=== PATIENT | female | born 1940 | race Caucasian/White ===

== ENCOUNTER 2017-02-22 11:52 | Outpatient (RCR) | payer OTHER ==
[~2017-02-22 11:52] MED LIST: ASPIRIN EC81 MG PO; BENICAR HCT 201 EACH PO; CENTRUM SILVER1 EAC3 PO; CHROMIUM PICO400 MCG PO; GABAPENTIN300 MG PO; GLUCOSAMINE PO; METFORMIN HCL500 MG PO; MUSHROOM COMPLEX PO; PROBIOTIC COMP1 EACH PO; VITAMIN B-12 PO; VITAMIN C PO; VITAMIN D32000 UNIT PO
== END 2017-03-23 ==
LOC: EDSEX → WCC 11:52
PROVIDERS: ATTEND Podiatrist Foot & Ankle Surgery
DX: E11.65 Type 2 diabetes mellitus with hyperglycemia (principal); E11.40 Type 2 diabetes mellitus with diabetic neuropathy, unspecified; E11.621 Type 2 diabetes mellitus with foot ulcer; I87.331 Chronic venous hypertension (idiopathic) with ulcer and inflammation of right lower extremity; L97.812 Non-pressure chronic ulcer of other part of right lower leg with fat layer exposed; I89.0 Lymphedema, not elsewhere classified; R61 Generalized hyperhidrosis; S81.802A Unspecified open wound, left lower leg, initial encounter; S91.104A Unspecified open wound of right lesser toe(s) without damage to nail, initial encounter; D50.8 Other iron deficiency anemias; L97.521 Non-pressure chronic ulcer of other part of left foot limited to breakdown of skin; E66.01 Morbid (severe) obesity due to excess calories; E78.5 Hyperlipidemia, unspecified; G47.33 Obstructive sleep apnea (adult) (pediatric); I10 Essential (primary) hypertension; I42.0 Dilated cardiomyopathy; I87.2 Venous insufficiency (chronic) (peripheral); I97.2 Postmastectomy lymphedema syndrome; M14.672 Charcot's joint, left ankle and foot; M19.93 Secondary osteoarthritis, unspecified site; M79.7 Fibromyalgia; W17.89XA Other fall from one level to another, initial encounter; Z85.42 Personal history of malignant neoplasm of other parts of uterus

== ENCOUNTER 2017-04-05 12:00 | Outpatient (RCR) | payer OTHER | END 2017-04-23 | LOC: WCC 12:00 | PROVIDERS: ATTEND Podiatrist Foot & Ankle Surgery | DX: E11.40 Type 2 diabetes mellitus with diabetic neuropathy, unspecified (principal); E11.65 Type 2 diabetes mellitus with hyperglycemia; I87.331 Chronic venous hypertension (idiopathic) with ulcer and inflammation of right lower extremity; L97.812 Non-pressure chronic ulcer of other part of right lower leg with fat layer exposed; S81.802A Unspecified open wound, left lower leg, initial encounter; S91.104A Unspecified open wound of right lesser toe(s) without damage to nail, initial encounter; I97.2 Postmastectomy lymphedema syndrome; I89.0 Lymphedema, not elsewhere classified; R60.1 Generalized edema; M14.672 Charcot's joint, left ankle and foot; I87.2 Venous insufficiency (chronic) (peripheral); D50.8 Other iron deficiency anemias; I10 Essential (primary) hypertension; E66.01 Morbid (severe) obesity due to excess calories; E78.5 Hyperlipidemia, unspecified; G47.33 Obstructive sleep apnea (adult) (pediatric); I48.2 Chronic atrial fibrillation; M19.93 Secondary osteoarthritis, unspecified site; M79.7 Fibromyalgia; W17.89XA Other fall from one level to another, initial encounter; Z85.42 Personal history of malignant neoplasm of other parts of uterus | CPT/HCPCS: 36415; 82948; G0463 ==

== ENCOUNTER 2017-05-17 14:00 | Outpatient (RCR) | payer OTHER | END 2017-05-24 | LOC: WCC 14:00 | PROVIDERS: ATTEND Podiatrist Foot & Ankle Surgery | DX: E11.65 Type 2 diabetes mellitus with hyperglycemia (principal); E11.40 Type 2 diabetes mellitus with diabetic neuropathy, unspecified; E11.621 Type 2 diabetes mellitus with foot ulcer; L97.521 Non-pressure chronic ulcer of other part of left foot limited to breakdown of skin; L97.812 Non-pressure chronic ulcer of other part of right lower leg with fat layer exposed; S81.802A Unspecified open wound, left lower leg, initial encounter; S91.104A Unspecified open wound of right lesser toe(s) without damage to nail, initial encounter; I87.331 Chronic venous hypertension (idiopathic) with ulcer and inflammation of right lower extremity; I87.2 Venous insufficiency (chronic) (peripheral); M14.672 Charcot's joint, left ankle and foot; I89.0 Lymphedema, not elsewhere classified; I97.2 Postmastectomy lymphedema syndrome; D50.8 Other iron deficiency anemias; E66.01 Morbid (severe) obesity due to excess calories; E78.5 Hyperlipidemia, unspecified; G47.33 Obstructive sleep apnea (adult) (pediatric); I10 Essential (primary) hypertension; I48.2 Chronic atrial fibrillation; M19.93 Secondary osteoarthritis, unspecified site; M79.7 Fibromyalgia; R61 Generalized hyperhidrosis; W17.89XA Other fall from one level to another, initial encounter; Z85.42 Personal history of malignant neoplasm of other parts of uterus | CPT/HCPCS: 36415; 82948; G0463 ==

== ENCOUNTER → 2017-06-21 | Outpatient (RCR) | payer OTHER | LOC: WCC 12:15 | PROVIDERS: ATTEND Podiatrist Foot & Ankle Surgery | DX: E11.621 Type 2 diabetes mellitus with foot ulcer (principal); E11.65 Type 2 diabetes mellitus with hyperglycemia; E11.40 Type 2 diabetes mellitus with diabetic neuropathy, unspecified; L97.421 Non-pressure chronic ulcer of left heel and midfoot limited to breakdown of skin; R21 Rash and other nonspecific skin eruption; I10 Essential (primary) hypertension; I87.2 Venous insufficiency (chronic) (peripheral); M14.672 Charcot's joint, left ankle and foot; I48.2 Chronic atrial fibrillation; M79.7 Fibromyalgia; D50.8 Other iron deficiency anemias; E66.01 Morbid (severe) obesity due to excess calories; E78.5 Hyperlipidemia, unspecified; G47.33 Obstructive sleep apnea (adult) (pediatric); I97.2 Postmastectomy lymphedema syndrome; M19.93 Secondary osteoarthritis, unspecified site; W17.89XA Other fall from one level to another, initial encounter; Z85.42 Personal history of malignant neoplasm of other parts of uterus | CPT/HCPCS: 36415; 82948; 87071; 87075; 87186; 87205 ==

== ENCOUNTER 2017-07-19 12:29 | Outpatient (RCR) | payer OTHER ==
[2017-07-19] MEDS ORDERED: LIDOCAINE VISC 2% SOLN 15 ML UDC ONE (13:41)
== END 2017-07-22 ==
LOC: WCC 12:29
PROVIDERS: ATTEND Podiatrist Foot & Ankle Surgery
DX: E11.621 Type 2 diabetes mellitus with foot ulcer (principal); E11.40 Type 2 diabetes mellitus with diabetic neuropathy, unspecified; E11.65 Type 2 diabetes mellitus with hyperglycemia; L97.421 Non-pressure chronic ulcer of left heel and midfoot limited to breakdown of skin; R21 Rash and other nonspecific skin eruption; M14.672 Charcot's joint, left ankle and foot; I87.2 Venous insufficiency (chronic) (peripheral); M19.93 Secondary osteoarthritis, unspecified site; I10 Essential (primary) hypertension; D50.8 Other iron deficiency anemias; E66.01 Morbid (severe) obesity due to excess calories; E78.5 Hyperlipidemia, unspecified; G47.33 Obstructive sleep apnea (adult) (pediatric); I48.2 Chronic atrial fibrillation; I97.2 Postmastectomy lymphedema syndrome; M79.7 Fibromyalgia; W17.89XA Other fall from one level to another, initial encounter; Z85.42 Personal history of malignant neoplasm of other parts of uterus
CPT/HCPCS: 87071; 87075; 87205

== ENCOUNTER 2017-07-26 12:36 | Outpatient (RCR) | payer OTHER ==
[~2017-07-26 12:36] MED LIST changes: +LIDOCAINE VISC 2% SOLN 15 ML UDC ONE
== END 2017-08-21 ==
LOC: WCC 12:36
PROVIDERS: ATTEND Podiatrist Foot & Ankle Surgery
DX: E11.621 Type 2 diabetes mellitus with foot ulcer (principal); E11.40 Type 2 diabetes mellitus with diabetic neuropathy, unspecified; E11.65 Type 2 diabetes mellitus with hyperglycemia; E11.622 Type 2 diabetes mellitus with other skin ulcer; L97.321 Non-pressure chronic ulcer of left ankle limited to breakdown of skin; L97.421 Non-pressure chronic ulcer of left heel and midfoot limited to breakdown of skin; I87.2 Venous insufficiency (chronic) (peripheral); M14.672 Charcot's joint, left ankle and foot; I48.2 Chronic atrial fibrillation; R21 Rash and other nonspecific skin eruption; E78.5 Hyperlipidemia, unspecified; I97.2 Postmastectomy lymphedema syndrome; I10 Essential (primary) hypertension; D50.8 Other iron deficiency anemias; E66.01 Morbid (severe) obesity due to excess calories; G47.33 Obstructive sleep apnea (adult) (pediatric); M19.93 Secondary osteoarthritis, unspecified site; M79.7 Fibromyalgia; W17.89XA Other fall from one level to another, initial encounter; Z85.42 Personal history of malignant neoplasm of other parts of uterus

== ENCOUNTER 2017-09-06 12:16 | Outpatient (RCR) | payer OTHER ==
[~2017-09-06 12:16] MED LIST changes: -LIDOCAINE VISC 2% SOLN 15 ML UDC ONE
== END 2017-09-21 ==
LOC: WCC 12:16
PROVIDERS: ATTEND Podiatrist Foot & Ankle Surgery
DX: E11.621 Type 2 diabetes mellitus with foot ulcer (principal); E11.622 Type 2 diabetes mellitus with other skin ulcer; E11.65 Type 2 diabetes mellitus with hyperglycemia; E11.40 Type 2 diabetes mellitus with diabetic neuropathy, unspecified; L97.421 Non-pressure chronic ulcer of left heel and midfoot limited to breakdown of skin; I87.2 Venous insufficiency (chronic) (peripheral); M14.672 Charcot's joint, left ankle and foot; I10 Essential (primary) hypertension; R21 Rash and other nonspecific skin eruption; D50.8 Other iron deficiency anemias; E66.01 Morbid (severe) obesity due to excess calories; E78.5 Hyperlipidemia, unspecified; G47.33 Obstructive sleep apnea (adult) (pediatric); I48.2 Chronic atrial fibrillation; I97.2 Postmastectomy lymphedema syndrome; M19.93 Secondary osteoarthritis, unspecified site; M79.7 Fibromyalgia; W17.89XA Other fall from one level to another, initial encounter; Z85.42 Personal history of malignant neoplasm of other parts of uterus